=== PATIENT | male | born 1990 | race Two or more races ===

== ENCOUNTER 2018-03-15 02:55 | Emergency (ER) | END 2018-03-15 05:17 | disposition home or self-care (01) ==

== ENCOUNTER 2018-08-10 08:50 | Emergency (ER) | payer MEDICAID ==
[~2018-08-10] VITALS: Wt 75.0 kg
[~2018-08-10 08:50] MED LIST: IBUP-1542 PO; TRAM50TA2 PO
[2018-08-10 08:57] VITALS: BP 179/84; PULSE 135; RESP 22
[2018-08-10] MEDS ORDERED: SOD CHLORIDE 0.9% 1,000 ML IV STA (09:22)
--- NOTE | 2018-08-10 09:32 | ERD ---
ER Documentation Chief Complaint Chief Complaint tacycardic and altered mental status while at liquor store, no distress HPI This is a 28-year-old male who was found at a liquor store with an altered mental status. The patient states that he smoked spice this morning. The patient had a marijuana pipe on him. Patient admits to using spice denies any other drug use this morning denies alcohol use. Denies any chest pain shortness of breath abdominal pain. ROS All systems reviewed and are negative except as per history of present illness. Medications Home Meds Discontinued Reported Medications [none] Unknown Strength No Conflict Check 03/15/18 Discontinued Scripts Tramadol HCl (Tramadol HCl) 50 Mg Tablet, 50 MG PO Q4 PRN for SEVERE PAIN LEVEL 7-10, #7 TAB Prov:ADRIA KELLEY NP 03/15/18 Ibuprofen* (Motrin*) 600 Mg Tab, 600 MG PO Q6H PRN for PAIN AND OR ELEVATED TEMP, #30 TAB Prov:ADRIA KELLEY NP 03/15/18 Allergies Allergies: Coded Allergies: No Known Allergy (Unverified , 08/10/18) PMhx/Soc History of Surgery: Yes (right upper thigh surgery) Anesthesia Reaction: No Hx Neurological Disorder: No Hx Respiratory Disorders: No Hx Cardiac Disorders: No Hx Psychiatric Problems: No Hx Miscellaneous Medical Probl: No Hx Alcohol Use: No Hx Substance Use: No Hx Tobacco Use: Yes (1 pack a day) FmHx Family History: No coronary disease Physical Exam Vitals Vital Signs Date Temp Pulse Resp B/P (MAP) Pulse Ox O2 O2 Flow FiO2 Time Delivery Rate 08/10/18 99.0 135 22 179/84 95 08:57 (115) Physical Exam Const: Well-developed, well-nourished Head: Atraumatic, normocephalic Eyes: Normal Conjunctiva, PERRLA, EOMI, normal sclera, no nystagmus ENT: Normal External Ears, Nose and Mouth, moist mucus membranes. Neck: Full range of motion. No meningismus, no lymphadenopathy. Resp: Clear to auscultation bilaterally, no wheezing, rhonchi, rales Cardio: Tachycardia, no murmurs, S1 S2 present] Abd: Soft, non tender x 4, non distended. Normal bowel sounds, no guarding or rebound, no pulsitile abdominal masses or bruits Skin: No petechiae or rashes, no ecchymosis , no maculopapular rash Back: No midline or flank tenderness Ext: No cyanosis, or edema, FROM x 4, normal inspection, neurovascularly intact x 4 Neur: Awake and alert, STR 5/5 x 4, sensation intact x 4, no focal findings, cerebellum intact Psych: Patient is little groggy but wakes up and speaks to me and answers questions mostly appropriate he does get a bit tangential Result Diagram: 08/10/1892908/10/18929 Results 24 hrs Laboratory Tests Test 08/10/18 09:30 White Blood Count 11.9 10^3/ul Red Blood Count 5.15 10^6/ul Hemoglobin 15.5 g/dl Hematocrit 46.7 % Mean Corpuscular Volume 90.7 fl Mean Corpuscular Hemoglobin 30.1 pg Mean Corpuscular Hemoglobin Concent 33.2 g/dl Red Cell Distribution Width 13.3 % Platelet Count 297 10^3/UL Mean Platelet Volume 9.6 fl Immature Granulocytes % 0.500 % Neutrophils % 66.3 % Lymphocytes % 25.6 % Monocytes % 6.9 % Eosinophils % 0.3 % Basophils % 0.4 % Nucleated Red Blood Cells % 0.0 /100WBC Immature Granulocytes # 0.060 10^3/ul Neutrophils # 7.9 10^3/ul Lymphocytes # 3.0 10^3/ul Monocytes # 0.8 10^3/ul Eosinophils # 0.0 10^3/ul Basophils # 0.1 10^3/ul Nucleated Red Blood Cells # 0.0 10^3/ul Sodium Level 141 mmol/L Potassium Level 4.8 mmol/L Chloride Level 102 mmol/L Carbon Dioxide Level 27 mmol/L Anion Gap 12 Blood Urea Nitrogen 15 mg/dl Creatinine 0.81 mg/dl Est Glomerular Filtrat Rate mL/min > 60 mL/min Glucose Level 153 mg/dl Calcium Level 9.1 mg/dl Ethyl Alcohol Level < 10.0 mg/dl Current Medications Medications Dose Sig/Darell Start Time Status Last (Trade) Ordered Route PRN Stop Time Admin Dose Reason Admin Sodium 1,000 ml @ Q1H STAT 08/10/18 DC 08/10/18 Chloride 1,000 mls/hr IV 09:22 08/10/18 10:02 10:21 Procedures/MDM Ordering MD: CARMELITA ELAM DO Location: E/R Room/Bed: PROCEDURE: XR Chest AP portable CLINICAL INDICATION: Chest pain TECHNIQUE: An AP portable radiograph of the chest was submitted. COMPARISON: 10/17/2015 FINDINGS: Support Hardware: None Cardiovascular: The cardiovascular silhouette appears unremarkable. Lung Whiteside: The lung whiteside appear clear with no nodule, alveolar infiltrate, or interstitial prominence evident. Pleural Spaces: No pneumothorax or pleural effusion is identified. Osseous Structures: There is a mild apparent diffuse dextroscoliotic curve to the thoracic spine. An old healed left clavicular fracture is again evident. Soft Tissues: The soft tissues appear unremarkable. IMPRESSION: 1. Stable chest without evidence of active cardiopulmonary disease. 2. Old healed left clavicular fracture and mild dextroscoliotic curve to the thoracic spine. Physician Landon Date Time Electronically viewed and signed by Reyes Vasquez Physician on 08/10/2018 09:48 RH/ CC: CARMELITA ELAM DO [id number] Ordering MD: CARMELITA ELAM DO Location: E/R Room/Bed: PROCEDURE: CT brain without contrast CLINICAL INDICATION: Medical clearance. Head pain TECHNIQUE: CT of the brain without contrast was performed on a multidetector CT scanner, with multiplanar reformats. One or more of the following dose reduction techniques were used: Automated exposure control, adjustment in mA and / or kV according to patient size, use of iterative reconstructive technique. CTDIvol = 48 mGy; DLP = 799 mGy-cm. DICOM images are available. COMPARISON: None available FINDINGS: No acute intracranial hemorrhage is identified. No extra-axial fluid collection is seen. There is no mass effect. No midline shift is identified. The ventricles and sulci are within normal limits for size and configuration. The density of the brain is unremarkable. Pan-white junctions are preserved. Calvarium and skull base are intact. Mastoid air cells and imaged paranasal sinuses grossly clear. IMPRESSION: Unremarkable noncontrast CT of the brain. RPTAT: VV .Ari Marrero MD, MD Date Time Electronically viewed and signed by .Ari Marrero MD, on 08/10/2018 12:25 .O/ CC: CARMELITA ELAM DO [id number] Patient is feeling better at this time. I went and reevaluated him at 12:35 PM and he is awake and alert oriented x3. He says he feels better more relaxed he said he was just feeling a little bit agitated this morning because he did smoke too much spice. Discussed with him to stop using drugs and the spice can be very dangerous even fatal Patient feels much better at this time, and vital signs are normal, symptoms have improved. I did give strict instructions to return to the ED if symptoms continue or worsen, patient will otherwise follow-up with primary care physicia n. Patient understood instructions and agreed to plan. Disclaimer: Inadvertent spelling and grammatical errors are likely due to EHR/dictation software use and do not reflect on the overall quality of patient care. Also, please note that the electronic time recorded on this note does not necessarily reflect the actual time of the patient encounter. Departure Diagnosis: Primary Impression: Drug abuse Condition: Stable CARMELITA ELAM DO Aug 10, 2018 09:32
== END 2018-08-10 13:29 | disposition home or self-care (01) ==
LOC: E/R 08:50
DX: F12.10 Cannabis abuse, uncomplicated (principal); R40.2142 Coma scale, eyes open, spontaneous, at arrival to emergency department; R40.2252 Coma scale, best verbal response, oriented, at arrival to emergency department; R40.2362 Coma scale, best motor response, obeys commands, at arrival to emergency department; R00.0 Tachycardia, unspecified; Z87.891 Personal history of nicotine dependence
CPT/HCPCS: 36415; 70450; 71045; 80048; 80307; 85025; 93005; J7030; Z7502

== ENCOUNTER 2018-10-11 03:51 | Emergency (ER) | payer MEDICAID ==
[~2018-10-11] VITALS: Ht 175.3 cm; Wt 88.4 kg
[2018-10-11 03:54] VITALS: BP 155/71; PULSE 87; RESP 18; Ht 175.3 cm; Wt 88.4 kg
[2018-10-11] MEDS ORDERED: KETOROLAC 60 MG INJ IM STA (04:18)
--- NOTE | 2018-10-11 04:25 | ERD ---
ER Documentation Chief Complaint Chief Complaint L ARM PAIN, SWELLING S/P INJECTING HEROIN IN TRICEP 2 DAYS AGO HPI Patient is a 28 years old male presenting to the clinic for left tricep pain and swelling since 2 days ago. Patient admits to injecting heroin 2 days ago prior to onset of symptoms. Patient rates his pain 10 out of 10 denies taking any xzys-vag-xswtrus medication. Patient denies fever, chills, night sweats. Patie nt denies all review of systems stating that his only 2 symptoms are severe left tricep pain and swelling. ROS All systems reviewed and are negative except as per history of present illness. Medications Home Meds Active Scripts Ibuprofen* (Motrin*) 800 Mg Tab, 800 MG PO Q6, #30 TAB Prov:ERIBERTO GOMEZ PA-C 10/11/18 Sulfamethoxazole/Trimethoprim* (Bactrim Ds* Tablet) 1 Each Tablet, 1 TAB PO BID for 10 Days, #20 TAB Prov:ERIBERTO GOMEZ PA-C 10/11/18 Allergies Allergies: Coded Allergies: No Known Allergy (Unverified , 08/10/18) PMhx/Soc History of Surgery: Yes (right upper thigh surgery) Anesthesia Reaction: No Hx Neurological Disorder: No Hx Respiratory Disorders: No Hx Cardiac Disorders: No Hx Psychiatric Problems: No Hx Miscellaneous Medical Probl: No Hx Alcohol Use: No Hx Substance Use: Yes (HEROIN X2 DAYS AGO 10/11/18) Hx Tobacco Use: Yes (1 pack a day) Smoking Status: Current every day smoker Physical Exam Vitals Vital Signs Date Temp Pulse Resp B/P (MAP) Pulse Ox O2 O2 Flow FiO2 Time Delivery Rate 10/11/18 97.7 87 18 155/71 96 03:54 (99) Physical Exam Const: No acute distress Head: Atraumatic Neck: Full range of motion. No meningismus. Resp: Clear to auscultation bilaterally Cardio: Regular rate and rhythm, no murmurs Neur: Awake and alert Psych: Normal Mood and Affect Left Arm Exam: Erythema over tricep with swelling that is tender to palpation. Induration noted in tricep. Result Diagram: 10/11/18 0428 Results 24 hrs Laboratory Tests Test 10/11/18 04:28 White Blood Count 14.5 10^3/ul Red Blood Count 4.86 10^6/ul Hemoglobin 14.2 g/dl Hematocrit 43.3 % Mean Corpuscular Volume 89.1 fl Mean Corpuscular Hemoglobin 29.2 pg Mean Corpuscular Hemoglobin Concent 32.8 g/dl Red Cell Distribution Width 13.0 % Platelet Count 247 10^3/UL Mean Platelet Volume 9.8 fl Immature Granulocytes % 0.300 % Neutrophils % 77.1 % Lymphocytes % 13.4 % Monocytes % 8.7 % Eosinophils % 0.3 % Basophils % 0.2 % Nucleated Red Blood Cells % 0.0 /100WBC Immature Granulocytes # 0.050 10^3/ul Neutrophils # 11.2 10^3/ul Lymphocytes # 2.0 10^3/ul Monocytes # 1.3 10^3/ul Eosinophils # 0.0 10^3/ul Basophils # 0.0 10^3/ul Nucleated Red Blood Cells # 0.0 10^3/ul Current Medications Medications Dose Sig/Darell Start Time Status Last (Trade) Ordered Route PRN Stop Time Admin Dose Reason Admin Ceftriaxone 1 gm ONCE ONCE 10/11/18 DC 10/11/18 Sodium IM 04:30 10/11/18 04:24 (Rocephin) 04:31 Ketorolac 60 mg ONCE STAT 10/11/18 DC 10/11/18 Tromethamine IM 04:18 10/11/18 04:25 (Toradol) 04:19 Procedures/MDM Patient was seen and evaluated for left tricep pain status post heroin injection. Patient is most likely experiencing cellulitis due to heroin injection without any signs of any abscess. Labs showed elevated white blood cell count. Patient was given Rocephin 1 g and will be discharged with Bactrim DS X 10 days. Patient is stable and ready for discharge. Patient was informed dangers of drugs and substance abuse. Departure Diagnosis: Primary Impression: Cellulitis Site of cellulitis: extremity Site of cellulitis of extremity: upper extremity Laterality: left Qualified Codes: L03.114 - Cellulitis of left upper limb Condition: Stable Patient Instructions: Cellulitis, Treating Heroin Addiction, Understanding Heroin Abuse and Addiction Referrals: [facility] Additional Instructions: Patient advised to return to the ED immediately for new or worsening symptoms. Patient advised to follow up with primary care provider in the next 24-48 hours. Patient verbalized understanding and agrees with treatment plan and course of action. If patient has no primary care they may follow up with [facility] [address] [address] or [facility] [address] [place] [address] or [facility] [address] [place] [address] ERIBERTO GOMEZ PA-C Oct 11, 2018 04:25
[2018-10-11] MEDS ORDERED: CEFTRIAXONE 1 GM INJ IM ONE (04:30)
[2018-10-11] MEDS ORDERED: IBUP800T48 PO (05:25)
[2018-10-11] MEDS ORDERED: SULF1TAB31 PO (05:25)
== END 2018-10-11 05:37 | disposition home or self-care (01) ==
LOC: FTE 03:51
DX: L03.114 Cellulitis of left upper limb (principal); F17.210 Nicotine dependence, cigarettes, uncomplicated
CPT/HCPCS: 85025; J0696; J1885; 96372